=== PATIENT | male | born 1960 | race Caucasian/White ===

== ENCOUNTER 2022-07-20 19:57 | Inpatient (IN) | payer OTHER, SELFPAY ==
[2022-07-20 20:20] LABS: Absolute Lymphocytes (CBC) 1.2 K/uL (0.7-4.9); Hematocrit 44.4 % (39.6-49.0); Lymphocytes % 9.4 % (15.3-44.8); MCV 87.2 fL (80-100); MPV 6.8 fL (7.6-11.3)
[2022-07-20 20:45] LABS: Troponin High Sensitivity 4.7 pg/mL (<58.9)
[2022-07-20 20:46] LABS: Potassium 4.1 mmol/L (3.5-5.1)
[2022-07-20 21:11] LABS: SARS-CoV-2 Antigen Rapid Res Negative (Negative)
--- NOTE | 2022-07-20 21:19 | RAD REPORT ---
EXAM DESCRIPTION: RAD - Chest Single View - 07/20/2022 8:46 pm CLINICAL HISTORY: Dyspnea COMPARISON: No comparisons FINDINGS: Lines: None. Lungs: No evidence of edema or pneumonia. Pleural: No significant pleural effusions or pneumothorax. Cardiac: The heart size is within normal limits. Mediastinum: Within normal limits. Bones: No acute fractures. Other: None IMPRESSION: No acute cardiopulmonary disease.
--- NOTE | 2022-07-20 21:48 | ER ---
Nurse's Notes [facility] Name: Henry Diehl Age: 61 yrs Sex: Male : 1960 Arrival Date: 07/20/2022 Time: 20:03 Bed 5 Private MD: Diagnosis: COPD/ Chronic obstructive pulmonary disease with (acute) exacerbation;Mild persistent asthma Presentation: 07/20 20:06 Chief complaint: EMS states: Pt reports SOB for the past 2-3 days. Has a history of jb4 asthma and COPD, has been out of his med and trying to hold off till Monday to get them refilled. Pt was given 2 A:A 1:1 treatments and reports improvement with the second. Has a 20g to the right A/C. Coronavirus screen: At this time, the client does not indicate any symptoms associated with coronavirus-19. Ebola Screen: No symptoms or risks identified at this time. Initial Sepsis Screen: Does the patient meet any 2 criteria? HR > 90 bpm. Yes Does the patient have a suspected source of infection? No. Patient's initial sepsis screen is negative. Risk Assessment: Do you want to hurt yourself or someone else? Patient reports no desire to harm self or others. Onset of symptoms was July 17, 2022. Transition of care: patient was not received from another setting of care. 20:06 Method Of Arrival: EMS: [facility] jb4 20:06 Acuity: HARINI 2 jb4 Historical: - Allergies: 20:13 PENICILLINS; jb4 - Home Meds: 20:13 Primitine mist [Active]; jb4 - PMHx: 20:13 Asthma; COPD; jb4 - Immunization history:: Adult Immunizations up to date. - Social history:: Smoking status: Patient denies any tobacco usage or history of. Screenin:14 [facility] ED Fall Risk Assessment (Adult) History of falling in the last 3 months, jb4 including since admission No falls in past 3 months (0 pts) Confusion or Disorientation No (0 pts) Score/Fall Risk Level 0 - 2 = Low Risk Oriented to surroundings, Maintained a safe environment. Abuse screen: Denies threats or abuse. Nutritional screening: No deficits noted. Tuberculosis screening: No symptoms or risk factors identified. Assessment: 20:14 General: Appears in no apparent distress. comfortable, Behavior is calm, cooperative, jb4 appropriate for age. Pain: Denies pain. Neuro: Level of Consciousness is awake, alert, obeys commands, Oriented to person, place, time, situation. Cardiovascular: Patient's skin is warm and dry. Respiratory: Airway is patent Respiratory effort is even, labored, using tripod position, Respiratory pattern is regular, symmetrical, Auditory expiratory Wheezes noted upon transitioning to the bed. GI: No signs and/or symptoms were reported involving the gastrointestinal system. : No signs and/or symptoms were reported regarding the genitourinary system. EENT: No signs and/or symptoms were reported regarding the EENT system. Derm: Skin is intact, Skin is pink, warm \T\ dry. Musculoskeletal: Circulation, motion, and sensation intact. Range of motion: intact in all extremities. 21:44 Reassessment: Patient appears in no apparent distress at this time. Patient and/or jb4 family updated on plan of care and expected duration. Pain level reassessed. Patient is alert, oriented x 3, equal unlabored respirations, skin warm/dry/pink. Patient states feeling better. Patient states symptoms have improved. 23:00 Reassessment: Patient appears in no apparent distress at this time. No changes from 4 previously documented assessment. Patient is alert, oriented x 3, equal unlabored respirations, skin warm/dry/pink. Vital Signs: 20:06 BP 158 / 97; Pulse 127; Resp 18; Temp 98.0(A); Pulse Ox 98% on Nebulizer Mask; Weight jb4 82.5 kg (M); Height 5 ft. 9 in. (175.26 cm); Pain 0/10; 21:44 BP 136 / 67; Pulse 127; Resp 18; Pulse Ox 95% on R/A; jb4 22:45 BP 132 / 78; Pulse 122; Resp 18; Pulse Ox 95% on 3 lpm NC; jb4 07/21 01:00 BP 121 / 72; Pulse 122; Resp 19; Pulse Ox 96% on 3 lpm NC; jb4 07/20 20:06 Body Mass Index 26.86 (82.50 kg, 175.26 cm) 4 ED Course: 07/20 20:03 Patient arrived in ED. kl 20:03 Minh Horton MD is Attending Physician. kdr 20:06 Lei Fletcher, RN is Primary Nurse. jb4 20:13 Triage completed. jb4 20:13 Arm band placed on right wrist. jb4 20:14 Patient has correct armband on for positive identification. Placed in gown. Bed in low jb4 position. Call light in reach. Side rails up X 1. Client placed on continuous cardiac and pulse oximetry monitoring. NIBP monitoring applied. court monitor on. 20:14 Maintain EMS IV. Dressing intact. Good blood return noted. Site clean \T\ dry. Gauge \T\ ray 4 site: 20g. 21:47 Luiz Crawley MD is Hospitalizing Provider. kdr 22:14 CT Chest For PE Angio In Process Unspecified. EDMS Administered Medications: 20:18 Not Given (Duplicate Order): Xopenex (levalbuterol) (3) 1.25 mg Inhalation once jb4 20:18 Not Given (Duplicate Order): SOLU-Medrol (methylPrednisoLONE) 125 mg IVP once jb4 20:18 Drug: SOLU-Medrol (methylPrednisoLONE) 125 mg Route: IVP; Site: right antecubital; jb4 20:18 Drug: Xopenex (levalbuterol) (3) 1.25 mg Route: Inhalation; jb4 23:37 CANCELLED (Other Intervention Used): Rocephin - (cefTRIAXone) 1 grams IVPB once over 30 la1 mins; (mix in 50 mL NS) 23:37 CANCELLED (Other Intervention Used): Zithromax (azithromycin) 500 mg PO once la1 23:51 Drug: LevaQUIN (levofloxacin) 750 mg Volume: 150 ml; Route: IVPB; Infused Over: 90 jb4 mins; Site: right antecubital; 07/21 01:29 Follow up: Response: No adverse reaction; IV Status: Completed infusion; IV Intake: jb4 150ml 00:08 Drug: NS 0.9% 1000 ml Route: IV; Rate: 1000 ml; Site: right antecubital; jb4 01:29 Follow up: Response: No adverse reaction; IV Status: Completed infusion; IV Intake: jb4 1000ml 00:47 Drug: Xopenex (levalbuterol) 1.25 mg Route: Inhalation; jb4 01:30 Follow up: Response: No adverse reaction; Marked relief of symptoms jb4 01:29 Drug: Magnesium Sulfate 2 grams Route: IVPB; Infused Over: 2 hrs; Site: left jb4 antecubital; Medication: 07/20 20:14 VIS not applicable for this client. jb4 Intake: 07/21 01:29 IV: 1000ml; Total: 1000ml. jb4 : IV: 150ml; Total: 1150ml. jb4 Outcome: 07/20 21:47 Decision to Hospitalize by Provider. kdr 07/21 02:03 Patient left the ED. jb4 Signatures: Dispatcher [employer] EDMirtha Sears RN Minh La MD MD kdr Bryson, James, RN RN jb4 Attema, Lee [employer]1 Corrections: (The following items were deleted from the chart) 07/20 20:14 20:13 Allergies: No Known Allergies; jb4 jb4
--- NOTE | 2022-07-20 21:48 | EDPHYS ---
Physician Documentation [facility] Name: Henry Diehl Age: 61 yrs Sex: Male : 1960 Arrival Date: 07/20/2022 Time: 20:03 Bed 5 Private MD: ED Physician Minh Horton HPI: 07/20 20:25 This 61 yrs old Male presents to ER via EMS with complaints of Shortness of breath. kdr 20:25 Patient states that for the last week or 2 he has had increasing difficulty breathing kdr and wheezing. He has a history of COPD and asthma. He has not had a hospitalization for some months. He states that he has been out of his medications for about the past month. He has been using a Primatene Mist nebulizer but otherwise has not had any home treatment. He denies any other associated symptoms other than slight back pain upper, secondary to difficulty exhaling due to the inflammation and airway disease. Patient otherwise alert and oriented and nontoxic-appearing. He had 1 albuterol Atrovent prior to arrival. He states he is feeling better at this time.. Onset: The symptoms/episode began/occurred gradually, 1.5 week(s) ago. Severity of symptoms: At their worst the symptoms were severe incapacitating just prior to arrival, in the emergency department the symptoms have improved moderately. The patient has experienced similar episodes in the past, several times, multiple times, chronically, Last hospitalization was some months ago.. Patient saw his PCP last week but did not get his meds refilled at that time. Historical: - Allergies: 20:13 PENICILLINS; jb4 - Home Meds: 20:13 Primitine mist [Active]; jb4 - PMHx: 20:13 Asthma; COPD; jb4 - Immunization history:: Adult Immunizations up to date. - Social history:: Smoking status: Patient denies any tobacco usage or history of. ROS: 20:25 Constitutional: Negative for fever, chills, and weight loss, Eyes: Negative for injury, kdr pain, redness, and discharge, Neck: Negative for injury, pain, and swelling, Cardiovascular: Negative for chest pain, palpitations, and edema, Abdomen/GI: Negative for abdominal pain, nausea, vomiting, diarrhea, and constipation, Back: Negative for injury and pain, : Negative for injury, bleeding, discharge, and swelling, MS/Extremity: Negative for injury and deformity, Skin: Negative for injury, rash, and discoloration, Neuro: Negative for headache, weakness, numbness, tingling, and seizure activity. Psych: Negative for depression, anxiety, suicide ideation, homicidal ideation, and hallucinations, Allergy/Immunology: Negative for hives, rash, and allergies, Endocrine: Negative for neck swelling, polydipsia, polyuria, polyphagia, and marked weight changes, Hematologic/Lymphatic: Negative for swollen nodes, abnormal bleeding, and unusual bruising. 20:25 Respiratory: Positive for cough, with no reported sputum, dyspnea on exertion, shortness of breath, at rest. wheezing, inspiratory, Negative for hemoptysis, orthopnea. Exam: 20:25 Constitutional: This is a well developed, well nourished patient who is awake, alert, kdr and in no acute distress. Head/Face: Normocephalic, atraumatic. Eyes: Pupils equal round and reactive to light, extra-ocular motions intact. Lids and lashes normal. Conjunctiva and sclera are non-icteric and not injected. Cornea within normal limits. Periorbital areas with no swelling, redness, or edema. Neck: Trachea midline, no thyromegaly or masses palpated, and no cervical lymphadenopathy. Supple, full range of motion without nuchal rigidity, or vertebral point tenderness. No Meningismus. Chest/axilla: Normal chest wall appearance and motion. Nontender with no deformity. No lesions are appreciated. Cardiovascular: Regular rate and rhythm with a normal S1 and S2. No gallops, murmurs, or rubs. Normal PMI, no JVD. No pulse deficits. Abdomen/GI: Soft, non-tender, with normal bowel sounds. No distension or tympany. No guarding or rebound. No evidence of tenderness throughout. Back: No spinal tenderness. No costovertebral tenderness. Full range of motion. Skin: Warm, dry with normal turgor. Normal color with no rashes, no lesions, and no evidence of cellulitis. MS/ Extremity: Pulses equal, no cyanosis. Neurovascular intact. Full, normal range of motion. Neuro: Awake and alert, GCS 15, oriented to person, place, time, and situation. Cranial nerves II-XII grossly intact. Motor strength 5/5 in all extremities. Sensory grossly intact. Cerebellar exam normal. Normal gait. Psych: Awake, alert, with orientation to person, place and time. Behavior, mood, and affect are within normal limits. 20:25 Respiratory: mild respiratory distress is noted, moderate respiratory distress is noted, Respirations: labored breathing, that is mild, shallow respirations, tachypnea, Breath sounds: wheezing: that is mild, that is moderate, is heard diffusely. 20:25 ECG was reviewed by the Attending Physician. [facility] Vital Signs: 20:06 BP 158 / 97; Pulse 127; Resp 18; Temp 98.0(A); Pulse Ox 98% on Nebulizer Mask; Weight jb4 82.5 kg (M); Height 5 ft. 9 in. (175.26 cm); Pain 0/10; 21:44 BP 136 / 67; Pulse 127; Resp 18; Pulse Ox 95% on R/A; jb4 22:45 BP 132 / 78; Pulse 122; Resp 18; Pulse Ox 95% on 3 lpm NC; 4 07/21 01:00 BP 121 / 72; Pulse 122; Resp 19; Pulse Ox 96% on 3 lpm NC; jb4 07/20 20:06 Body Mass Index 26.86 (82.50 kg, 175.26 cm) [facility] MDM: 07/20 20:25 Data reviewed: vital signs, nurses notes, lab test result(s), EKG, radiologic studies. kdr 21:47 Patient medically screened. kdr 07/20 20:04 Order name: Basic Metabolic Panel kdr 07/20 20:04 Order name: CBC with Diff kdr 07/20 20:04 Order name: NT PRO-BNP kdr 07/20 20:04 Order name: Troponin HS kdr 07/20 20:05 Order name: CBC with Diff kl 07/20 20:05 Order name: Basic Metabolic Panel kl 07/20 20:05 Order name: Troponin High Sensitivity kl 07/20 20:21 Order name: CBC with Automated Diff; Complete Time: 20:32 EDMS 07/20 20:37 Order name: SARS RAPID jb4 07/20 20:46 Order name: Basic Metabolic Panel; Complete Time: 21:35 EDMS 07/20 20:46 Order name: Troponin High Sensitivity; Complete Time: 21:35 EDMS 07/20 20:46 Order name: NT PRO-BNP; Complete Time: 21:35 EDMS 07/20 21:12 Order name: SARS-COV-2 Antigen Rapid; Complete Time: 21:35 EDMS 07/20 21:50 Order name: Blood Culture Adult (2) kdr 07/20 20:04 Order name: XRAY Chest (1 view) kdr 07/20 20:04 Order name: EKG; Complete Time: 20:05 kdr 07/20 20:05 Order name: EKG; Complete Time: 20:06 kl 07/20 21:21 Order name: RAD; Complete Time: 21:35 EDMS 07/20 21:50 Order name: CT Chest For PE Angio; Complete Time: 23:32 kdr 07/20 21:50 Order name: Lactate w/ 2H reflex if indic.; Complete Time: 23:32 kdr 07/20 20:04 Order name: Cardiac monitoring; Complete Time: 20:19 kdr 07/20 20:04 Order name: EKG - Nurse/Tech; Complete Time: 20:37 kdr 07/20 20:04 Order name: IV Saline Lock; Complete Time: 20:19 kdr 07/20 20:04 Order name: Labs collected and sent; Complete Time: 20:19 kdr 07/20 20:04 Order name: O2 Per Protocol; Complete Time: 20:19 kdr 07/20 20:04 Order name: O2 Sat Monitoring; Complete Time: 20:19 kdr EC:25 Rate is 119 beats/min. Rhythm is regular, Sinus tachycardia with No ectopy. HI interval kdr is normal. QRS interval is normal. QT interval is normal. No Q waves. Clinical impression: Sinus tachycardia. Administered Medications: 20:18 Not Given (Duplicate Order): Xopenex (levalbuterol) (3) 1.25 mg Inhalation once jb4 20:18 Not Given (Duplicate Order): SOLU-Medrol (methylPrednisoLONE) 125 mg IVP once jb4 20:18 Drug: SOLU-Medrol (methylPrednisoLONE) 125 mg Route: IVP; Site: right antecubital; jb4 20:18 Drug: Xopenex (levalbuterol) (3) 1.25 mg Route: Inhalation; jb4 23:37 CANCELLED (Other Intervention Used): Rocephin - (cefTRIAXone) 1 grams IVPB once over 30 la1 mins; (mix in 50 mL NS) 23:37 CANCELLED (Other Intervention Used): Zithromax (azithromycin) 500 mg PO once la1 23:51 Drug: LevaQUIN (levofloxacin) 750 mg Volume: 150 ml; Route: IVPB; Infused Over: 90 jb4 mins; Site: right antecubital; 07/21 01:29 Follow up: Response: No adverse reaction; IV Status: Completed infusion; IV Intake: jb4 150ml 00:08 Drug: NS 0.9% 1000 ml Route: IV; Rate: 1000 ml; Site: right antecubital; jb4 01:29 Follow up: Response: No adverse reaction; IV Status: Completed infusion; IV Intake: jb4 1000ml 00:47 Drug: Xopenex (levalbuterol) 1.25 mg Route: Inhalation; jb4 01:30 Follow up: Response: No adverse reaction; Marked relief of symptoms 01:29 Drug: Magnesium Sulfate 2 grams Route: IVPB; Infused Over: 2 hrs; Site: left jb4 antecubital; Disposition Summary: 07/20/22 21:47 Hospitalization Ordered Hospitalization Status: Observation kdr Provider: Luiz Crawley Condition: Fair kdr Problem: an acute exacerbation kdr Symptoms: have improved kdr Bed/Room Type: Standard kdr Location: Telemetry/MedSurg (observation)(07/21/22 01:28) cg Room Assignment: [facility](07/21/22 01:34) cg Diagnosis - COPD/ Chronic obstructive pulmonary disease with (acute) exacerbation kdr - Mild persistent asthma kdr Forms: - Medication Reconciliation Form kdr - SBAR form kdr Signatures: Dispatcher [employer] EDMirtha Sears RN RN kl Rittger, Kevin, MD MD kdr Colt De Leon FNP-C FNP-Jamilah Mcgowan RN RN Lei Fletcher RN RN jb4 Corrections: (The following items were deleted from the chart) 07/20 20:14 20:13 Allergies: No Known Allergies; jb4 jb4 23:37 23:34 Rocephin - (cefTRIAXone) 1 grams IVPB once over 30 mins; (mix in 50 mL NS) la1 ordered. kdr 23:37 23:34 Zithromax (azithromycin) 500 mg PO once ordered. kdr la1 23:48 21:47 Telemetry/MedSurg (observation) kdr cg 23:48 21:47 kdr cg 07/21 00:07/20 23:48 [facility] ER HOLD cg cg 07/21 01:28 07/20 23:48 ERHOLD- cg cg 07/21 01:34 01:28 cg cg
--- NOTE | 2022-07-20 22:24 | RAD REPORT ---
EXAM DESCRIPTION: CT - Chest For Pe Angio - 07/20/2022 10:12 pm CLINICAL HISTORY: COUGH COMPARISON: No comparisons TECHNIQUE: Dynamically enhanced axial 3 mm thick images of the chest were obtained during administra tion of <100> mL Isovue 370 IV contrast. Coronal and oblique reconstruction images were generated and reviewed. Exam utilizes a protocol for optimal evaluation of pulmonary arterial tree. Maximum intensity projections 3D imaging was utilized All CT scans are performed using dose optimization technique as appropriate and may include automated exposure control or mA/KV adjustment according to patient size. FINDINGS: Chest Wall: No suspicious thyroid nodules or pathologic lymphadenopathy. Lungs: Mild ground-glass opacities present right upper lobe. A discrete solid nodule is identified me asuring 9 millimeters. Pleura: No significant effusions or pneumothorax. Mediastinum/adilene: Presumably reactive right-sided hilar lymph node. Pulmonary arteries/Aorta: No filling defect identified. No aortic aneurysm. Heart: No significant pericardial effusion. Normal heart size. Upper abdomen: No acute abnormality. Bones: No acute abnormality. IMPRESSION: Negative for pulmonary embolism. Mild right upper lobe nodularity could reflect a mild o r early developing pneumonia. Solid 9 mm right upper lobe nodule. Suspect a similar benign etiology however no priors are available to confirm. A three-month follow-up chest CT is recommended to ensure resolution.
[2022-07-20] MEDS ORDERED: Levofloxacin 750mg IV 750 MG/150 ML BAG IV ONE (23:50)
[2022-07-21] MEDS ORDERED: NA CHLORIDE 0.9% 1,000 ML ONE (00:06)
--- NOTE | 2022-07-21 00:20 | P.HP ---
Certification for Inpatient Patient admitted to: Inpatient With expected LOS: >2 Midnights Patient will require the following post-hospital care: None Practitioner: I am a practitioner with admitting privileges, knowledge of patient current condition, hospital course, and medical plan of care. Services: Services provided to patient in accordance with Admission requirements found in Title 42 Section 412.3 of the Code of Federal Regulations <Colt De Leon - Last Filed: 07/21/22 00:15> Patient History Date of Service: 07/21/22 Reason for admission: COPD, severe sepsis, pneumonia History of Present Illness: 61-year-old male with history of COPD/asthma presented to the emergency department for dyspnea. He reports increasing shortness of breath over the course of last 3 to 4 days, significant worse since yesterday. He reports he has been without his inhalers since around Linda time. He was evaluated here in the emergency department his labs were significant for leukocytosis white blood cell count 13.1, he was tachycardic and tachypneic lactate was 2.6, chest x-ray was negative for any acute findings CT PE protocol was performed which revealed mild right upper lobe nodularity could reflect a mild or early developing pneumonia, solid 9 mm right upper lobe nodule. Suspect a similar benign etiology however no priors are available to confirm, recommend 3-month follow-up CT chest to ensure resolution. Patient meets criteria for severe sepsis given leukocytosis, tachycardia, tachypnea, lactic acidosis and source of infection and pneumonia. Started on IV antibiotics, blood cultures obtained. Will admit for further evaluation and management. - Past Medical/Surgical History -: COPD/asthma -: Sinus surgery Psychosocial/ Personal History: Patient lives at home with a roommate - Family History Family History: Reviewed- Non-Contributory - Social History Smoking Status: Never smoker Alcohol use: No CD- Drugs: No Caffeine use: No Place of Residence: Home <Colt De Leon - Last Filed: 07/21/22 00:15> Date of Service: 07/21/22 <Luiz Crawley - Last Filed: 07/21/22 18:42> Review of Systems 10-point ROS is otherwise unremarkable Respiratory: Cough, Dry, Shortness of Breath, SOB with Excertion, Wheezing <Colt De Leon - Last Filed: 07/21/22 00:15> Physical Examination - Physical Exam General: Alert, In no apparent distress, Oriented x3 HEENT: Atraumatic, PERRLA, Mucous membr. moist/pink, EOMI, Sclerae nonicteric Neck: Supple, 2+ carotid pulse no bruit, No LAD, Without JVD or thyroid abnormality Respiratory: Diminished, Expiratory wheezes, Other (Mild distress) Cardiovascular: Regular rate/rhythm, Normal S1 S2 Capillary refill: <2 Seconds Gastrointestinal: Normal bowel sounds, No tenderness Musculoskeletal: No tenderness Integumentary: No rashes Neurological: Normal speech, Normal strength at 5/5 x4 extr, Normal tone, Normal affect - Studies Laboratory Data (last 24 hrs) 07/20/22 20:05: Sodium Cancelled, Potassium Cancelled, BUN Cancelled, Creatinine Cancelled, Glucose Cancelled 07/20/22 20:05: WBC Cancelled, Hgb Cancelled, Hct Cancelled, Plt Count Cancelled 07/20/22 19:55: WBC 13.10 H, Hgb 14.5, Hct 44.4, Plt Count 366 07/20/22 19:55: Sodium 136, Potassium 4.1, BUN 16, Creatinine 1.02, Glucose 111 H <Colt De Leon - Last Filed: 07/21/22 00:15> - Studies Laboratory Data (last 24 hrs) 07/20/22 20:05: Sodium Cancelled, Potassium Cancelled, BUN Cancelled, Creatinine Cancelled, Glucose Cancelled 07/20/22 20:05: WBC Cancelled, Hgb Cancelled, Hct Cancelled, Plt Count Cancelled 07/20/22 19:55: WBC 13.10 H, Hgb 14.5, Hct 44.4, Plt Count 366 07/20/22 19:55: Sodium 136, Potassium 4.1, BUN 16, Creatinine 1.02, Glucose 111 H Microbiology Data (last 24 hrs): 07/20/22 22:36 Blood - Blood Anaerobic Blood Culture - Final <Luiz Crawley - Last Filed: 07/21/22 18:42> Assessment and Plan - Plan Assessment: COPD with exacerbation Severe sepsis secondary to right-sided pneumonia Incidental 9 mm right upper lobe lung nodule Plan: COPD with exacerbation: Continue ICS, as needed nebulizer treatments, p.o. steroids, pulmonology consult in place. Added IV mag, will obtain ABG. Severe sepsis secondary to right-sided pneumonia: SIRS criteria present including leukocytosis, tachycardia, tachypnea, lactate greater than 2 CT showing early right-sided pneumonia. Given IV antibioticsLevaquin. No hypotension or lactate greater than 4. Incidental 9 mm right upper lobe lung nodule Discussed with patient need for follow-up CT at 3 months to assess stability. Provided patient with copy of results. DVT PPX: Lovenox Code status: full Discharge Plan: Home Plan to discharge in: 48 Hours - Advance Directives Does patient have a Living Will: No Does patient have a Durable POA for Healthcare: No Critical Care: No Time Spent Managing Pts Care (In Minutes): 70 <Colt De Leon - Last Filed: 07/21/22 00:15> Physician Review: Patient Assessed, Agree with Above Assessment and Plan Physician Review Additional Text: Dr. Henning will assume care as the primary attending physician starting on 07/22/2022 @ 06:00 AM. <Luiz Crawley - Last Filed: 07/21/22 18:42>
[2022-07-21] MEDS ORDERED: LEVALBUTEROL 1.25 MG/3 ML NEB ONE (00:49)
[2022-07-21] MEDS ORDERED: Magnesium Sulfate 2gm IVPB 2 G/50 ML BAG IV ONE (01:19)
[2022-07-21 02:33] VITALS: BMI 26.9
[2022-07-21] MEDS ORDERED: ALBUTEROL 2.5 MG/3 ML NEB SOL NEB PRN ×2 (02:46→12:00)
[2022-07-21] MEDS ORDERED: ONDANSETRON 4 MG/2 ML VIAL IV PRN (02:46)
[2022-07-21] MEDS ORDERED: BENZONATATE 100 MG CAP PO PRN (02:46)
[2022-07-21] MEDS ORDERED: IPRATROPIUM BROM 0.5MG/2.5ML NEB PRN (02:46)
[2022-07-21] MEDS: NA CHLORIDE 0.9% 1,000 ML IV SCH ×2 (03:01→12:46)
[2022-07-21 03:34] LABS: Arterial Blood Carboxyhemoglob 0.7 % (0-1.5); Blood Gas Oxyhemoglobin 91.5 % (94-97); Blood O2 Saturation 93.3 % (92-98.5)
[2022-07-21 05:42] LABS: Absolute Lymphocytes (CBC) 0.3 K/uL (0.7-4.9); Lymphocytes % 4.5 % (15.3-44.8); MPV 6.7 fL (7.6-11.3); RBC Red Blood Cell Count 4.83 M/uL (4.33-5.43)
[2022-07-21 05:56] LABS: Potassium 4.2 mmol/L (3.5-5.1)
[2022-07-21] MEDS: predniSONE 20 MG TAB PO SCH (07:59)
[2022-07-21] MEDS ORDERED: INFLUENZA VACCINE (for 6+ mo) 0.5 ML DOSE IMVAC ONE (08:00)
[2022-07-21] MEDS: DULERA 200/5 (MOMETASONE/FORMOTEROL) INHALER IH SCH ×2 (08:00→21:02)
[2022-07-21 08:44] LABS: Blood Morphology Comment NOT SEEN (NOT SEEN); Platelet Estimate ADEQ; White Blood Cell Scan OK (OK)
[2022-07-21] MEDS ORDERED: ENOXAPARIN 40 MG/0.4 ML SQ SCH (09:00)
[2022-07-21] MEDS ORDERED: Levofloxacin 750mg IV 750 MG/150 ML BAG IV SCH (09:00)
[2022-07-21] MEDS: FAMOTIDINE 20 MG TAB PO SCH ×2 (10:20→20:57)
--- NOTE | 2022-07-21 11:51 | EKG ---
Test Date: 2022-07-20 Test Time: 20:19:20 Automation/Controls Manager: HUAN MEASUREMENT RESULTS: Intervals: Rate: 119 GA: 112 QRSD: 76 QT: 312 QTc: 438 [place]: P: 76 GA: 112 QRS: 76 T: 92 INTERPRETIVE STATEMENTS: Sinus tachycardia Nonspecific ST abnormality Abnormal ECG Compared to ECG 12/28/2000 11:24:00 ST (T wave) deviation now present Sinus rhythm no longer present Short GA interval no longer present Electronically Signed On 07-21-22 11:51:01 CELLAR PACKER by Roland Webb
--- NOTE | 2022-07-21 12:59 | P.CNS ---
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 got acutely worse very short of breath unable to access exhale ended up here in the emergency room much better today patient is usually compliant with his Breo has an exacerbation about 2 to 3 years ago never smoked no fever or chills Allergies Penicillins Adverse Reaction (Verified 07/21/22 02:28) Hives/Rash Home Medications: Albuterol Inhaler [Ventolin Inhaler*] 1 inh IH PRN PRN 07/21/22 Fluticasone/Vilanterol [Breo Ellipta 200-25 Mcg INH] 1 each IH DAILY 30 Days #30 aero 07/21/22 Fluticasone/Vilanterol [Breo Ellipta 200-25 Mcg INH] 1 inh IH PRN PRN 07/21/22 Azithromycin Tab [Zithromax*] 500 mg PO DAILY 7 Days #7 tab 07/22/22 predniSONE [Prednisone*] 10 mg PO DAILY #20 tab 07/22/22 - Past Medical/Surgical History Diabetic: No -: COPD/asthma -: History of chlorine gas exposure -: Sinus surgery Psychosocial/ Personal History: Patient lives at home with a roommate - Social History Alcohol use: No CD- Drugs: No Caffeine use: No Place of Residence: Home Review of Systems 10-point ROS is otherwise unremarkable Respiratory: Shortness of Breath Physical Examination Temp Pulse Resp BP Pulse Ox 97.6 F 118 H 20 135/61 94 07/21/22 12:00 07/21/22 12:00 07/21/22 12:00 07/21/22 12:00 07/21/22 12:00 General: Alert, In no apparent distress, Oriented x3 Respiratory: Expiratory wheezes Cardiovascular: No edema, Normal pulses, Regular rate/rhythm Gastrointestinal: Normal bowel sounds, Soft and benign Laboratory Data (last 24 hrs) 07/20/22 20:05: Sodium Cancelled, Potassium Cancelled, BUN Cancelled, Creatinine Cancelled, Glucose Cancelled 07/20/22 20:05: WBC Cancelled, Hgb Cancelled, Hct Cancelled, Plt Count Cancelled 07/20/22 19:55: WBC 13.10 H, Hgb 14.5, Hct 44.4, Plt Count 366 07/20/22 19:55: Sodium 136, Potassium 4.1, BUN 16, Creatinine 1.02, Glucose 111 H - Problems (1) COPD exacerbation Current Visit: Yes Status: Acute Plan: Patient is 61 years of age with a history of obstructive airways disease and COPD/asthma never smoked secondary to a chlorine exposure at work many years ago and out of his Breo to 3 weeks ago usually does well with Breo exacerbation was about 3 years ago labs chemistries all reviewed minimal changes in the right upper lobe plan to discharge tomorrow on Breo and prednisone milligrams twice a day for 10 days including Zithromax (2) Abnormal CT scan of lung Current Visit: Yes Status: Acute Plan: CT scan shows a right upper lobe nodule with surrounding infiltrate most likely inflammatory plan to have another CAT scan done in about 4 weeks
[2022-07-22 04:12] LABS: Absolute Lymphocytes (CBC) 1.7 K/uL (0.7-4.9); Hematocrit 39.4 % (39.6-49.0); Lymphocytes % 12.5 % (15.3-44.8); MCV 86.9 fL (80-100); RBC Red Blood Cell Count 4.53 M/uL (4.33-5.43)
[2022-07-22 08:35] VITALS: BP 128/63; TEMP 98.6
[2022-07-22] MEDS ORDERED: AZITHROMYCIN 250 MG TAB PO SCH (09:00)
--- NOTE | 2022-07-22 09:23 | P.DS ---
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 got acutely worse very short of breath unable to access exhale ended up here in the emergency room much better today patient is usually compliant with his Breo has an exacerbation about 2 to 3 years ago never smoked no fever or chills Hospital Course: Patient is 61 years of age with prior history of chlorine exposure history of asthma/COPD admitted with an exacerbation and out of his medications and using his Breo has not had an exacerbation for 2 years admitted treated with the bronchodilators and steroids at the time of discharge alert oriented responsive cooperative chest clear vital signs all stable oxygenation satisfactory feeling well cultures all negative chest x-ray CT scan questionable infiltrate CT scan shows a right upper lobe nodule/infiltrate will need a follow-up CT scan in 4 weeks 3 months for risk for cancer and has never smoked Negative for pulmonary embolism. Mild right upper lobe nodularity could reflect a mild or early developing pneumonia. Solid 9 mm right upper lobe nodule. Suspect a similar benign etiology however no priors are available to confirm. A three-month follow-up chest CT is recommended to ensure resolution. Vital Signs/Physical Exam: Temp Pulse Resp BP Pulse Ox 98.6 F 93 H 18 128/63 95 07/22/22 08:00 07/22/22 08:00 07/22/22 08:00 07/22/22 08:00 07/22/22 08:00 Laboratory Data at Discharge: WBC 13.80 K/uL (4.3-10.9) H 07/22/22 03:26 Hgb 12.7 g/dL (13.6-17.9) L 07/22/22 03:26 Hct 39.4 % (39.6-49.0) L 07/22/22 03:26 Plt Count 337 K/uL (152-406) 07/22/22 03:26 Sodium 139 mmol/L (136-145) 07/22/22 03:26 Potassium 4.0 mmol/L (3.5-5.1) 07/22/22 03:26 BUN 15 mg/dL (7-18) 07/22/22 03:26 Creatinine 0.83 mg/dL (0.70-1.30) 07/22/22 03:26 Glucose 100 mg/dL (74-106) 07/22/22 03:26 Home Medications: Albuterol Inhaler [Ventolin Inhaler*] 1 inh IH PRN PRN 07/21/22 Fluticasone/Vilanterol [Breo Ellipta 200-25 Mcg INH] 1 each IH DAILY 30 Days #30 aero 07/21/22 Fluticasone/Vilanterol [Breo Ellipta 200-25 Mcg INH] 1 inh IH PRN PRN 07/21/22 Azithromycin Tab [Zithromax*] 500 mg PO DAILY 7 Days #7 tab 07/22/22 predniSONE [Prednisone*] 10 mg PO DAILY #20 tab 07/22/22 New Medications: Fluticasone/Vilanterol [Breo Ellipta 200-25 Mcg INH] 1 each IH DAILY 30 Days #30 aero predniSONE [Prednisone*] 10 mg PO DAILY #20 tab Azithromycin Tab [Zithromax*] 500 mg PO DAILY 7 Days #7 tab Physician Discharge Instructions: Please make sure that 3 prescriptions have been faxed to the patient's pharmacy Diet: Regular Activity: Ad jerome Followup: NONE,NONE [Primary Care Provider] - Ankit Henning MD [ACTIVE - CAN ADMIT] -
[2022-07-22] MEDS: FAMOTIDINE 20 MG TAB PO SCH (09:30)
[2022-07-22] MEDS: predniSONE 20 MG TAB PO SCH (09:30)
[2022-07-22] MEDS: DULERA 200/5 (MOMETASONE/FORMOTEROL) INHALER IH SCH (09:32)
[2022-07-22 09:36] VITALS: O2SAT 94
== END 2022-07-22 12:55 | disposition home or self-care (01) | DRG 871 ==
LOC: ER 19:57 → ERHOLD 07-21 00:01 → 4TH 07-21 01:41
PROVIDERS: ADMIT Internal Medicine; ATTEND Internal Medicine Sleep Medicine
DX: A41.9 Sepsis, unspecified organism (principal); J18.9 Pneumonia, unspecified organism; J44.1 Chronic obstructive pulmonary disease with (acute) exacerbation; J44.0 Chronic obstructive pulmonary disease with (acute) lower respiratory infection; R65.20 Severe sepsis without septic shock; J45.30 Mild persistent asthma, uncomplicated; T48.4X6A Underdosing of expectorants, initial encounter; R91.8 Other nonspecific abnormal finding of lung field; Z23 Encounter for immunization; Z88.0 Allergy status to penicillin; Z79.52 Long term (current) use of systemic steroids; Z91.14 Patient's other noncompliance with medication regimen; Z79.899 Other long term (current) drug therapy; Z91.128 Patient's intentional underdosing of medication regimen for other reason; Z20.822 Contact with and (suspected) exposure to COVID-19
CPT/HCPCS: 36415; 71045; 71275; 80048; 82805; 83605; 83880; 84484; 85025; 87040; 87811; 90471; 93005; 94640; 99284; J1650; J3475; J3535; J7030; J7512; J7614; J7644; Q2035; Q9967